=== PATIENT | male | born 1940 | race Caucasian/White ===

== ENCOUNTER 2020-01-19 09:41 | Emergency (ER) | payer MEDICARE, BC ==
[~2020-01-19] VITALS: Ht 172.7 cm; Wt 80.0 kg
[~2020-01-19 09:41] MED LIST: ALLO100T PO; LISI-600 PO; tamulosin PO
[2020-01-19 10:10] VITALS: BP 141/76
== END 2020-01-19 11:10 | disposition home or self-care (01) ==
LOC: ER 09:41
DX: R43.8 Other disturbances of smell and taste (principal); R11.2 Nausea with vomiting, unspecified; R53.83 Other fatigue; R53.1 Weakness; Z20.828 Contact with and (suspected) exposure to other viral communicable diseases; Z79.899 Other long term (current) drug therapy
CPT/HCPCS: 36415; 87635; 99283

== ENCOUNTER 2020-02-29 20:56 | Emergency (ER) | payer MEDICARE, BC ==
[~2020-02-29] VITALS: Ht 172.7 cm; Wt 72.0 kg
[2020-02-29 20:59] VITALS: BP 168/80
== END 2020-02-29 21:41 | disposition home or self-care (01) ==
LOC: ER 20:58
DX: U07.1 COVID-19 (principal); J06.9 Acute upper respiratory infection, unspecified; I10 Essential (primary) hypertension; Z87.891 Personal history of nicotine dependence; Z79.899 Other long term (current) drug therapy
CPT/HCPCS: 36415; 87635; 99283